=== PATIENT | male | born 1940 | race Asian ===

== ENCOUNTER 2017-09-02 02:16 | Emergency (ER) | payer MEDICARE ==
[~2017-09-02] VITALS: Ht 177.8 cm; Wt 62.6 kg
[2017-09-02 03:15] LABS: Basophils # (auto) 0 uL; Eosinophils # (auto) 0.2 uL; Eosinophils % (auto) 4.7 % (0.0-7.0); Hematocrit 34.4 % (41.0-53.0); Hemoglobin 11.5 g/dL (13.5-17.5); Lymphocytes # (auto) 0.8 uL; Lymphocytes % (auto) 21.1 % (10.0-50.0); Mean Corpuscular Hemoglobin 31.9 pg (28.0-32.0); Mean Corpuscular Hgb Conc. 33.6 g/dL (32.0-36.0); Mean Corpuscular Volume 95.1 fL (80.0-100.0); Mean Platelet Volume 9.8 fL (6.9-10.8); Monocytes # (auto) 0.3 uL; Monocytes % (auto) 8.3 % (0.0-12.0); Neutrophils # (auto) 2.5 uL; Neutrophils % (auto) 64.9 % (37.0-80.0); Nucleated Red Blood Cells % 0.1 %; Platelet Count (auto) 108 10^3/uL (140-450); Red Cell Distribution Width 14.6 % (11.8-14.3); White Blood Cell 3.8 10^3/uL (4.4-10.8)
[2017-09-02 03:30] LABS: Albumin 3.1 g/dL (3.4-5.0); BUN/Creatinine Ratio 10.3; Potassium 3.9 mmol/L (3.5-5.1)
[2017-09-02] MEDS ORDERED: MECLIZINE HCL 25 MG TAB PO ONE (03:30)
[2017-09-02 03:36] LABS: Bilirubin, Total 0.5 mg/dL (0.2-1.0); Total Protein 6.9 g/dL (6.4-8.2)
[2017-09-02 04:04] LABS: Temperature: 22.7 C (20.0-25.0)
[2017-09-02 06:12] VITALS: BP 125/71
== END 2017-09-02 06:57 | disposition home or self-care (01) ==
LOC: ER 02:21
DX: R42 Dizziness and giddiness (principal); I50.9 Heart failure, unspecified; I11.0 Hypertensive heart disease with heart failure; E11.9 Type 2 diabetes mellitus without complications; R00.1 Bradycardia, unspecified
CPT/HCPCS: 36415; 71010; 80053; 83880; 84484; 85025; 93005; 94761; 99285; J8597

== ENCOUNTER 2021-07-27 04:51 | Inpatient (IN) | payer MEDICARE ==
[~2021-07-27] VITALS: Ht 167.6 cm; Wt 59.0 kg
[~2021-07-27 04:51] MED LIST: ATOR20TA PO; CARV12.544 PO; FURO1TAB31 PO; LEVO500T31 PO; MECL25TA18 PO; SPIR50TA2 PO; TAMS0.4C36 PO; WARF3TAB22 PO
[2021-07-27] MEDS ORDERED: NALOXONE HCL 1MG/ML 2ML SYRINGE IV ONE (05:45)
[2021-07-27 05:51] LABS: Basophils # (auto) 0 10 ^3/uL (0-0.2); Basophils % (auto) 0.2 % (0.0-2.0); Eosinophils # (auto) 0 10 ^3/uL (0-0.8); Hematocrit 35.9 % (41.0-53.0); Hemoglobin 12.1 g/dL (13.5-17.5); Lymphocytes # (auto) 0.6 10 ^3/uL (0.4-5.4); Lymphocytes % (auto) 6.2 % (10.0-50.0); Mean Corpuscular Hemoglobin 31.8 pg (28.0-32.0); Mean Corpuscular Hgb Conc. 33.8 g/dL (32.0-36.0); Mean Corpuscular Volume 94.1 fL (80.0-100.0); Monocytes # (auto) 0.4 10 ^3/uL (0-1.3); Monocytes % (auto) 4.1 % (0.0-12.0); Neutrophils # (auto) 8.1 10 ^3/uL (1.6-8.6); Neutrophils % (auto) 89.5 % (37.0-80.0); Red Blood Cells 3.82 10^6/uL (4.5-5.90); Red Cell Distribution Width 14.2 % (11.8-14.3); White Blood Cell 9.1 10^3/uL (4.4-10.8)
[2021-07-27 06:07] LABS: Partial Thromboplastin Time 46.1 sec (23.6-33.0)
[2021-07-27 06:14] LABS: INR 4.84 (0.9-1.15)
[2021-07-27] MEDS ORDERED: PHYTONADIONE(VitK) ORAL Susp 10mg/10ml(1mg/ml) PO ONE ×2 (06:15→06:30)
[2021-07-27 06:23] LABS: Anion Gap 6 (5-15); Blood Alcohol < 3.0 mg/dL (0-5); Blood Urea Nitrogen 39 mg/dL (7-18); Calcium 8.4 mg/dL (8.5-10.1); Carbon Dioxide 26 mmol/L (21-32); Chloride 105 mmol/L (98-107); Glucose 141 mg/dL (74-106); Magnesium 2.8 mg/dL (1.6-2.6); Sodium 137 mmol/L (136-145)
[2021-07-27 06:25] LABS: Alanine Aminotransferase 20 U/L (16-61); Albumin 3.3 g/dL (3.4-5.0); Aspartate Aminotransferase 17 U/L (15-37); BUN/Creatinine Ratio 15.3; GFR African American 31 mL/min; GFR Non-African American 26 mL/min
[2021-07-27 06:30] LABS: Alkaline Phosphatase 70 U/L (45-117); Bilirubin, Total 0.8 mg/dL (0.2-1.0); Total Protein 7.9 g/dL (6.4-8.2)
[2021-07-27 06:32] LABS: Potassium 5.9 mmol/L (3.5-5.1)
[2021-07-27 06:43] LABS: Alcohol, Urine < 3.0 mg/dL (0-10); Amphetamine Screen, Urine NEGATIVE (NEGATIVE); Barbiturate Scree,Urine NEGATIVE (NEGATIVE); Benzodiazephine Screen, Urine NEGATIVE (NEGATIVE); Cannabinoid Screen, Urine NEGATIVE (NEGATIVE); Cocaine Screen, Urine NEGATIVE (NEGATIVE); Opiate Scree,Urine NEGATIVE (NEGATIVE); Phencyclidine Screen, Urine NEGATIVE (NEGATIVE)
[2021-07-27] MEDS ORDERED: DEXTROSE (50%) 50ML SYRG IV ONE (06:45)
[2021-07-27] MEDS ORDERED: CALCIUM GLUC 1,000mg/50ml-NS 50 ML IV ONE (06:45)
[2021-07-27] MEDS ORDERED: SODIUM BICARBONATE 8.4% INJ 50ML SYRINGE IV ONE (06:45)
[2021-07-27] MEDS ORDERED: SODIUM ZIRCONIUM CYCL 10 GM PAK PO ONE (06:45)
[2021-07-27] MEDS ORDERED: InsuLIN REG 1unit/0.01ml Soln (100units/ml) IV ONE (06:45)
[2021-07-27] MEDS ORDERED: MORPHINE SULFATE INJECTION 2 MG/ML SYRG IV PRN ×2 (10:30→11:15)
[2021-07-27] MEDS ORDERED: NITROGLYCERIN 0.4 MG SL TAB SL PRN (10:30)
[2021-07-27] MEDS ORDERED: SODIUM CHLORIDE 0.9% 500 ML IV ONE (10:30)
[2021-07-27] MEDS ORDERED: LACTULOSE 20Gm/30ML SOLN PO PRN (11:15)
[2021-07-27] MEDS ORDERED: ACETAMINOPHEN 500 MG TAB PO PRN (11:15)
[2021-07-27] MEDS ORDERED: traMADol HCL 50 MG TAB PO PRN ×2 (11:15→12:30)
[2021-07-27] MEDS ORDERED: DEXTROSE (50%) 50ML SYRG IV PRN (11:15)
[2021-07-27] MEDS ORDERED: ONDANSETRON HCL 4 MG/2 ML VIAL IV PRN (11:15)
[2021-07-27] MEDS: ACCU-CHEK COMFORT CURVE STRIP VI SCH ×3 (11:30→23:45)
[2021-07-27 11:58] LABS: Urine Bacteria FEW /hpf (None Seen); Urine Blood Negative /uL (Negative); Urine Specific Gravity 1.017 (1.001-1.035); Urine WBC 2 /hpf (0 - 3)
[2021-07-27] MEDS: SODIUM CHLORIDE 0.9% 1,000 ML IV SCH ×2 (15:54→17:19)
[2021-07-27] MEDS ORDERED: LORazepam 2MG/ML-1ML VIAL ONE (16:22)
[2021-07-27] MEDS ORDERED: LORazepam 2MG/ML-1ML VIAL IV ONE (16:30)
[2021-07-27 20:56] LABS: BUN/Creatinine Ratio 20.4; Calcium 8.9 mg/dL (8.5-10.1)
[2021-07-27 23:20] VITALS: BP 166/94
[2021-07-27 23:50] VITALS: BP 166/94
[2021-07-28 05:00] VITALS: BP 150/84
[2021-07-28 05:53] LABS: Basophils # (auto) 0.1 10 ^3/uL (0-0.2); Basophils % (auto) 0.6 % (0.0-2.0); Eosinophils # (auto) 0 10 ^3/uL (0-0.8); Eosinophils % (auto) 0.1 % (0.0-7.0); Hematocrit 33.4 % (41.0-53.0); Hemoglobin 11.2 g/dL (13.5-17.5); Lymphocytes % (auto) 10.1 % (10.0-50.0); Mean Corpuscular Hemoglobin 31.3 pg (28.0-32.0); Mean Corpuscular Hgb Conc. 33.6 g/dL (32.0-36.0); Mean Corpuscular Volume 93.1 fL (80.0-100.0); Monocytes # (auto) 0.7 10 ^3/uL (0-1.3); Neutrophils % (auto) 82.2 % (37.0-80.0); Red Blood Cells 3.59 10^6/uL (4.5-5.90); Red Cell Distribution Width 14.3 % (11.8-14.3); White Blood Cell 9.8 10^3/uL (4.4-10.8)
[2021-07-28] MEDS: ACCU-CHEK COMFORT CURVE STRIP VI SCH ×3 (06:08→17:15)
[2021-07-28 06:10] LABS: Albumin 2.8 g/dL (3.4-5.0); Calcium 8.4 mg/dL (8.5-10.1); Potassium 4.3 mmol/L (3.5-5.1)
[2021-07-28 06:16] LABS: BUN/Creatinine Ratio 21.3; Total Protein 6.5 g/dL (6.4-8.2)
[2021-07-28 06:24] LABS: INR 4.32 (0.9-1.15)
[2021-07-28] MEDS ORDERED: PHYTONADIONE (VIT K)10 MG/ML 1ML VIAL SUBCUT ONE (07:15)
[2021-07-28 09:00] VITALS: BP 154/81
[2021-07-28] MEDS ORDERED: HALOPERIDOL LACTATE 5 MG/ML INJ VIAL IV PRN (10:00)
[2021-07-28] MEDS ORDERED: SODIUM CHLORIDE 0.9% 1,000 ML IV SCH (15:00)
[2021-07-28 17:00] VITALS: BP 155/55
[2021-07-28 21:54] VITALS: BP 154/96
[2021-07-28 23:04] LABS: Cholesterol 202 mg/dL (< 200)
[2021-07-28 23:07] LABS: HDL Cholesterol 43 mg/dL (40-59); LDL Cholesterol 133 mg/dL (< 100); Triglycerides 148 mg/dL (< 150)
[2021-07-29 04:42] VITALS: BP 116/51
[2021-07-29] MEDS: ACCU-CHEK COMFORT CURVE STRIP VI SCH ×5 (06:39→21:08)
[2021-07-29 09:00] VITALS: BP 93/61
[2021-07-29 13:00] VITALS: BP 120/68
[2021-07-29] MEDS: SOD CHL 0.45% 1,000 ML IV SCH (13:00)
[2021-07-29 14:49] LABS: Protein, Urine 117.8 mg/dL (0.0-11.9)
[2021-07-29 17:00] VITALS: BP 132/73
[2021-07-29 22:00] VITALS: BP 167/96
[2021-07-29] MEDS ORDERED: ATORVASTATIN 20 MG TAB PO SCH (22:00)
[2021-07-30 02:33] LABS: INR 1.14 (0.9-1.15)
[2021-07-30] MEDS: SOD CHL 0.45% 1,000 ML IV SCH ×2 (02:44→12:40)
[2021-07-30 05:00] VITALS: BP 140/82
[2021-07-30] MEDS: ACCU-CHEK COMFORT CURVE STRIP VI SCH ×2 (06:25→11:30)
[2021-07-30 08:00] VITALS: BP 162/96
[2021-07-30 10:02] LABS: Folate (Folic Acid) 5.62 ng/mL (5.38-24)
[2021-07-30 13:00] VITALS: BP 102/68
[2021-07-30 13:21] VITALS: BP 162/96
[2021-07-30] MEDS ORDERED: SODIUM CHLORIDE 0.9% 1,000 ML IV SCH (18:00)
== END 2021-07-30 15:48 | disposition home or self-care (01) | DRG 70 ==
LOC: ER 04:51 → EDBD 04:51 → TELE 10:17 → TELE-CENTR 23:10
PROVIDERS: ADMIT Internal Medicine; ATTEND Family Medicine
DX: G93.41 Metabolic encephalopathy (principal); N17.0 Acute kidney failure with tubular necrosis; I50.23 Acute on chronic systolic (congestive) heart failure; T83.83XA Hemorrhage due to genitourinary prosthetic devices, implants and grafts, initial encounter; I13.0 Hypertensive heart and chronic kidney disease with heart failure and stage 1 through stage 4 chronic kidney disease, or unspecified chronic kidney disease; M62.82 Rhabdomyolysis; F03.90 Unspecified dementia, unspecified severity, without behavioral disturbance, psychotic disturbance, mood disturbance, and anxiety; E87.5 Hyperkalemia; D69.6 Thrombocytopenia, unspecified; I48.91 Unspecified atrial fibrillation; E78.5 Hyperlipidemia, unspecified; D63.1 Anemia in chronic kidney disease; E11.22 Type 2 diabetes mellitus with diabetic chronic kidney disease; E78.00 Pure hypercholesterolemia, unspecified; F41.9 Anxiety disorder, unspecified; N18.9 Chronic kidney disease, unspecified; Z20.822 Contact with and (suspected) exposure to COVID-19; R31.9 Hematuria, unspecified; R79.89 Other specified abnormal findings of blood chemistry; R45.1 Restlessness and agitation; Y84.6 Urinary catheterization as the cause of abnormal reaction of the patient, or of later complication, without mention of misadventure at the time of the procedure; E86.0 Dehydration; T45.515A Adverse effect of anticoagulants, initial encounter; Y92.89 Other specified places as the place of occurrence of the external cause; Z82.49 Family history of ischemic heart disease and other diseases of the circulatory system; Z86.73 Personal history of transient ischemic attack (TIA), and cerebral infarction without residual deficits
CPT/HCPCS: 36415; 51702; 70450; 71045; 76775; 80048; 80053; 80061; 80307; 80320; 81001; 82306; 82550; 82570; 82607; 82746; 82962; 83036; 83735; 83880; 83970; 84100; 84156; 84300; 84443; 84484; 84550; 85025; 85379; 85610; 85730; 87426; 93005; 93306; 93886; 93970; 95819; 96361; 96365; 96375; 97110; 97163; 97530; G0378; J1815; J3430

== ENCOUNTER 2021-10-09 14:17 | Emergency (ER) | payer MEDICARE ==
[~2021-10-09] VITALS: Ht 165.1 cm; Wt 59.0 kg
[2021-10-09 16:01] LABS: Basophils # (auto) 0 10 ^3/uL (0-0.2); Basophils % (auto) 0.4 % (0.0-2.0); Eosinophils # (auto) 0 10 ^3/uL (0-0.8); Eosinophils % (auto) 0.4 % (0.0-7.0); Hemoglobin 10.9 g/dL (13.5-17.5); Lymphocytes # (auto) 0.6 10 ^3/uL (0.4-5.4); Lymphocytes % (auto) 9.2 % (10.0-50.0); Mean Corpuscular Hemoglobin 32.7 pg (28.0-32.0); Mean Corpuscular Hgb Conc. 33.2 g/dL (32.0-36.0); Mean Corpuscular Volume 98.4 fL (80.0-100.0); Monocytes # (auto) 0.4 10 ^3/uL (0-1.3); Monocytes % (auto) 6.8 % (0.0-12.0); Neutrophils # (auto) 5.4 10 ^3/uL (1.6-8.6); Neutrophils % (auto) 83.2 % (37.0-80.0); Nucleated Red Blood Cells % 0.1 %; Red Blood Cells 3.35 10^6/uL (4.5-5.90); Red Cell Distribution Width 13.4 % (11.8-14.3); White Blood Cell 6.4 10^3/uL (4.4-10.8)
[2021-10-09 16:17] LABS: Albumin 2.8 g/dL (3.4-5.0); Calcium 8.2 mg/dL (8.5-10.1); Potassium 4.5 mmol/L (3.5-5.1)
[2021-10-09 16:19] LABS: BUN/Creatinine Ratio 21.9
[2021-10-09 16:22] LABS: Bilirubin, Total 1.1 mg/dL (0.2-1.0); Total Protein 6.6 g/dL (6.4-8.2)
[2021-10-09 16:56] LABS: Urine Bacteria NONE SEEN /hpf (None Seen); Urine Blood 2+ /uL (Negative); Urine Specific Gravity 1.016 (1.001-1.035); Urine WBC 12 /hpf (0 - 3)
[2021-10-09] MEDS ORDERED: NITR-87 PO (17:03)
[2021-10-09] MEDS ORDERED: SODIUM CHLORIDE 0.9% 1,000 ML IV ONE (18:00)
[2021-10-09] MEDS ORDERED: ACETAMINOPHEN 500 MG TAB PO ONE ×2 (18:20→18:30)
[2021-10-09 18:45] VITALS: BP 149/78
== END 2021-10-09 19:00 | disposition home or self-care (01) ==
LOC: EDBD 14:17 → ER 14:17
DX: N39.0 Urinary tract infection, site not specified (principal); R30.0 Dysuria; I11.0 Hypertensive heart disease with heart failure; I50.9 Heart failure, unspecified; I48.91 Unspecified atrial fibrillation; E78.5 Hyperlipidemia, unspecified; Z95.0 Presence of cardiac pacemaker; Z79.01 Long term (current) use of anticoagulants; Z79.2 Long term (current) use of antibiotics; Z79.899 Other long term (current) drug therapy
CPT/HCPCS: 36415; 74176; 80053; 81001; 85025; 96360; 99284; J7030

== ENCOUNTER 2021-10-10 09:33 | Emergency (ER) | payer MEDICARE ==
[~2021-10-10] VITALS: Ht 157.5 cm; Wt 56.7 kg
[~2021-10-10 09:33] MED LIST changes: +NITR-87 PO
[2021-10-10 11:14] VITALS: BP 138/69
[2021-10-10] MEDS ORDERED: HYDROcodone-ACET 5/325MG TAB PO ONE (11:45)
[2021-10-10 12:26] LABS: Urine Bacteria MOD /hpf (None Seen); Urine Blood 1+ /uL (Negative); Urine Hyaline Cast FEW /lpf (0 - 2); Urine Mucus FEW (None Seen); Urine Specific Gravity 1.016 (1.001-1.035); Urine WBC 43 /hpf (0 - 3)
== END 2021-10-10 13:49 | disposition home or self-care (01) ==
LOC: EDBD 09:33 → ER 09:33
DX: M48.061 Spinal stenosis, lumbar region without neurogenic claudication (principal); M54.16 Radiculopathy, lumbar region; N39.0 Urinary tract infection, site not specified; I11.0 Hypertensive heart disease with heart failure; I50.9 Heart failure, unspecified; I48.91 Unspecified atrial fibrillation; E78.5 Hyperlipidemia, unspecified; Z95.0 Presence of cardiac pacemaker; Z79.01 Long term (current) use of anticoagulants; Z79.2 Long term (current) use of antibiotics; Z79.899 Other long term (current) drug therapy
CPT/HCPCS: 72131; 81001

== ENCOUNTER 2024-05-25 10:10 | Emergency (ER) | payer MEDICARE ==
[~2024-05-25] VITALS: Ht 172.7 cm; Wt 50.7 kg
[~2024-05-25 10:10] MED LIST changes: +CEPH-37 PO; +MECL-90 PO; -MECL25TA18 PO; +WARF-110 PO; +WARF-111 PO; -WARF3TAB22 PO
[2024-05-25 10:19] VITALS: BP 129/71; PULSE 72; RESP 20; O2SAT 96
[2024-05-25 14:31] LABS: Basophils # (auto) 0 10 ^3/uL (0-0.2); Basophils % (auto) 0.2 % (0.0-2.0); Eosinophils # (auto) 0 10 ^3/uL (0-0.8); Eosinophils % (auto) 0.2 % (0.0-7.0); Hematocrit 30.9 % (41.0-53.0); Hemoglobin 10.2 g/dL (13.5-17.5); Lymphocytes # (auto) 0.7 10 ^3/uL (0.4-5.4); Lymphocytes % (auto) 9.9 % (10.0-50.0); Mean Corpuscular Hgb Conc. 33.2 g/dL (32.0-36.0); Mean Corpuscular Volume 96.3 fL (80.0-100.0); Monocytes # (auto) 0.4 10 ^3/uL (0-1.3); Monocytes % (auto) 6.5 % (0.0-12.0); Neutrophils # (auto) 5.8 10 ^3/uL (1.6-8.6); Neutrophils % (auto) 83.2 % (37.0-80.0); Nucleated Red Blood Cells % 0.1 %; Red Cell Distribution Width 13.4 % (11.8-14.3); White Blood Cell 6.9 10^3/uL (4.4-10.8)
[2024-05-25 14:47] LABS: INR 2.93 (0.9-1.15); Partial Thromboplastin Time 42.4 SEC (24.5-34.5); Prothrombin Time 28.7 sec (9.3-11.8)
[2024-05-25 14:53] LABS: Alanine Aminotransferase 10 U/L (7-40); Albumin 3.9 g/dL (3.2-4.8); Alkaline Phosphatase 70 U/L (46-116); Anion Gap 6 (5-15); Aspartate Aminotransferase 16 U/L (13-40); BUN/Creatinine Ratio 23.4 (10.0-20.0); Bilirubin, Total 0.8 mg/dL (0.2-1.0); Blood Urea Nitrogen 43 mg/dL (9-23); Calcium 9.1 mg/dL (8.5-10.1); Carbon Dioxide 25 mmol/L (20-30); Chloride 109 mmol/L (98-107); Glucose 97 mg/dL (74-106); Potassium 4.6 mmol/L (3.5-5.1); Sodium 140 mmol/L (136-145); Total Protein 6.9 g/dL (5.7-8.2)
[2024-05-25] MEDS ORDERED: NASAGEL (15:54)
== END 2024-05-25 14:39 | disposition home or self-care (01) ==
LOC: ER 10:10
DX: R04.0 Epistaxis (principal); D64.9 Anemia, unspecified; Z88.0 Allergy status to penicillin
CPT/HCPCS: 36415; 80053; 85025; 85610; 85730

== ENCOUNTER 2024-05-29 15:42 | Emergency (ER) | payer MEDICARE ==
[~2024-05-29] VITALS: Ht 172.7 cm; Wt 79.5 kg
[~2024-05-29 15:42] MED LIST changes: +NASAGEL
[2024-05-29 17:35] LABS: Basophils # (auto) 0 10 ^3/uL (0-0.2); Basophils % (auto) 0.5 % (0.0-2.0); Eosinophils # (auto) 0 10 ^3/uL (0-0.8); Hematocrit 27.2 % (41.0-53.0); Hemoglobin 9.1 g/dL (13.5-17.5); Lymphocytes # (auto) 0.5 10 ^3/uL (0.4-5.4); Lymphocytes % (auto) 10.3 % (10.0-50.0); Mean Corpuscular Hemoglobin 31.9 pg (28.0-32.0); Mean Corpuscular Hgb Conc. 33.5 g/dL (32.0-36.0); Mean Corpuscular Volume 95.5 fL (80.0-100.0); Monocytes # (auto) 0.4 10 ^3/uL (0-1.3); Monocytes % (auto) 8.1 % (0.0-12.0); Neutrophils # (auto) 3.8 10 ^3/uL (1.6-8.6); Neutrophils % (auto) 80.1 % (37.0-80.0); Red Blood Cells 2.84 10^6/uL (4.5-5.90); Red Cell Distribution Width 13.5 % (11.8-14.3); White Blood Cell 4.7 10^3/uL (4.4-10.8)
[2024-05-29 17:45] VITALS: PULSE 70
[2024-05-29 17:53] LABS: INR 1.13 (0.9-1.15); Partial Thromboplastin Time 29.8 SEC (24.5-34.5); Prothrombin Time 11.9 sec (9.3-11.8)
[2024-05-29 18:44] LABS: Albumin 3.3 g/dL (3.2-4.8); Alkaline Phosphatase 58 U/L (46-116); Anion Gap 7 (5-15); Aspartate Aminotransferase 10 U/L (13-40); BUN/Creatinine Ratio 17.7 (10.0-20.0); Bilirubin, Total 0.9 mg/dL (0.2-1.0); Blood Urea Nitrogen 36 mg/dL (9-23); Calcium 8.6 mg/dL (8.7-10.4); Carbon Dioxide 25 mmol/L (20-30); Chloride 110 mmol/L (98-107); Glucose 137 mg/dL (74-106); Potassium 4.6 mmol/L (3.5-5.1); Sodium 142 mmol/L (136-145); Total Protein 5.9 g/dL (5.7-8.2)
[2024-05-29 18:49] LABS: Alanine Aminotransferase < 9 U/L (7-40)
[2024-05-29 19:30] VITALS: BP 167/54; PULSE 98; RESP 18; O2SAT 95
== END 2024-05-29 20:11 | disposition home or self-care (01) ==
LOC: ER 15:42
DX: R04.0 Epistaxis (principal); I11.0 Hypertensive heart disease with heart failure; I50.9 Heart failure, unspecified; E78.5 Hyperlipidemia, unspecified; Z88.0 Allergy status to penicillin
CPT/HCPCS: 36415; 71045; 80053; 84484; 85025; 85610; 85730; 93005